=== PATIENT | male | born 1955 | race African-American/Black ===

== ENCOUNTER 2017-03-10 12:06 | Emergency (ER) | payer MEDICAID ==
[~2017-03-10] VITALS: Ht 172.7 cm; Wt 69.0 kg
[2017-03-10] MEDS ORDERED: KETOROLAC 60MG/2ML VIAL IM ONE (15:30)
[2017-03-10 15:36] VITALS: BP 130/70
== END 2017-03-10 18:14 | disposition home or self-care (01) ==
LOC: ER 12:10
DX: R07.81 Pleurodynia (principal); I10 Essential (primary) hypertension
CPT/HCPCS: 71101; 96372; 99283; J1885

== ENCOUNTER 2018-05-02 08:25 | Inpatient (IN) | payer MEDICAID ==
[~2018-05-02] VITALS: Ht 170.2 cm; Wt 72.6 kg
[2018-05-02] MEDS ORDERED: IPRATROPIUM BROMIDE (0.02%) 0.5MG/2.5ML NEB HHN STA (08:52)
[2018-05-02] MEDS ORDERED: MAGNESIUM 2 G PREMIX 50 ML IV STA (08:52)
[2018-05-02] MEDS ORDERED: METHYLPREDNISOLONE SOD SUCC 125 MG/2 ML VIAL IV STA (08:52)
[2018-05-02] MEDS ORDERED: ALBUTEROL (0.083%) 2.5MG/3ML NEB HHN STA (08:52)
[2018-05-02 09:20] LABS: BASOPHILS % 0.8 % (0.0-2.0); EOSINOPHILS % 3.8 % (0.0-5.0); HEMATOCRIT. 45.3 % (42.0-52.0); HEMOGLOBIN. 14.6 g/dL (14.0-18.0); LYMPHOCYTES % 30.7 % (20.0-50.0); MEAN CORPUSCULAR HEMOGLOBIN 29.9 pg (28.0-32.0); MEAN CORPUSCULAR VOLUME 92.9 fL (80.0-94.0); MEAN PLATELET VOLUME 10.4 fl (7.4-10.4); MONOCYTES % 6.3 % (2.0-8.0); NEUTROPHILS % 58.4 % (40.0-76.0); PLATELET 192 x1000/uL (130-400); RED BLOOD CELL COUNT 4.88 mill/uL (4.7-6.1); RED CELL DISTRIBUTION WIDTH 13.8 % (11.6-14.6)
[2018-05-02 09:25] LABS: CHLORIDE 109 mEq/L (98-107)
[2018-05-02 09:27] LABS: PARTIAL THROMBOPLASTIN TIME 24.5 sec (23.4-31.0); PROTHROMBIN TIME 10.1 sec (9.1-11.1)
[2018-05-02 09:29] LABS: ETHANOL BLOOD < 10 mg/dL
[2018-05-02] MEDS ORDERED: LEVOFLOXACIN 500MG PREMIX 100 ML IV ONE (10:00)
[2018-05-02] MEDS ORDERED: FUROSEMIDE 20MG/2ML VIAL IVP ONE (10:00)
[2018-05-02] MEDS ORDERED: IPRATROPIUM/ALBUTEROL 0.5-3(2.5)MG/3ML NEB ONE (10:04)
[2018-05-02 10:25] LABS: *AMPHETAMINES SCREEN URINE NEGATIVE (NEGATIVE); *BARBITURATES SCREEN URINE NEGATIVE (NEGATIVE); *BENZODIAZEPINES SCREEN URINE NEGATIVE (NEGATIVE)
[2018-05-02 10:26] LABS: *COCAINE SCREEN URINE PRESUMTIVE POSITIVE (NEGATIVE); CANNABINOID URINE SCREEN NEGATIVE (NEGATIVE); METHADONE URINE SCREEN NEGATIVE (NEGATIVE); OPIATES URINE SCREEN NEGATIVE (NEGATIVE); PHENCYCLIDINE URINE SCREEN PRESUMTIVE POSITIVE (NEGATIVE)
[2018-05-02] MEDS ORDERED: FUROSEMIDE 20MG/2ML VIAL ONE (10:27)
[2018-05-02] MEDS ORDERED: CLOPIDOGREL 75MG TABLET PO NR (14:00)
[2018-05-02] MEDS ORDERED: AMLODIPINE 5MG TABLET PO NR (14:00)
[2018-05-02] MEDS: NITROGLYCERIN OINT 1GM/INCH UDPKT TD SCH ×2 (14:44→21:50)
[2018-05-02 15:51] VITALS: BP 131/69
[2018-05-02] MEDS ORDERED: ACETAMINOPHEN 650MG SUPP PR PRN (19:15)
[2018-05-02] MEDS ORDERED: ONDANSETRON HCL 4MG/2ML INJ IV PRN (19:15)
[2018-05-02] MEDS ORDERED: ACETAMINOPHEN 650MG/20.3ML UDC GT PRN (19:15)
[2018-05-02] MEDS ORDERED: HYDROCODONE/ACETAMINOPHEN 5/325MG TABLET PO PRN (19:15)
[2018-05-02] MEDS ORDERED: HYDROCODONE/ACETAMINOPHEN 10/325MG TABLET PO PRN (19:15)
[2018-05-02] MEDS ORDERED: CLONIDINE 0.1MG TABLET PO PRN (19:15)
[2018-05-02] MEDS ORDERED: DIPHENHYDRAMINE 50MG/ML VIAL IV PRN (19:15)
[2018-05-02] MEDS ORDERED: MAGNESIUM/ALUMINUM HYDROXIDE/SIMETHICONE 30ML UDC PO PRN (19:15)
[2018-05-02] MEDS ORDERED: ACETAMINOPHEN 325MG TABLET PO PRN (19:15)
[2018-05-02] MEDS ORDERED: NA PHOS,M-B/NA PHOS,DI-BA ENEMA 118ML PR PRN (19:15)
[2018-05-02] MEDS ORDERED: DOCUSATE SODIUM 100MG CAPSULE PO PRN (19:15)
[2018-05-02 20:00] VITALS: BP 111/65
[2018-05-02] MEDS: ENOXAPARIN 40MG/0.4ML SYR SUBCUT SCH (21:50)
[2018-05-02 22:37] LABS: CREATINE KINASE MB FRACTION 3.8 ng/mL (0.5-3.6)
[2018-05-03 04:00] VITALS: BP 143/99
[2018-05-03] MEDS: NITROGLYCERIN OINT 1GM/INCH UDPKT TD SCH ×3 (05:53→21:18)
[2018-05-03 06:36] LABS: BASOPHILS % 0.5 % (0.0-2.0); EOSINOPHILS % 0.5 % (0.0-5.0); HEMATOCRIT. 40.8 % (42.0-52.0); HEMOGLOBIN. 13.5 g/dL (14.0-18.0); LYMPHOCYTES % 16.7 % (20.0-50.0); MEAN CORPUSCULAR HEMOGLOBIN 30.1 pg (28.0-32.0); MEAN PLATELET VOLUME 11.5 fl (7.4-10.4); MONOCYTES % 5.6 % (2.0-8.0); NEUTROPHILS % 76.7 % (40.0-76.0); PLATELET 191 x1000/uL (130-400); RED BLOOD CELL COUNT 4.48 mill/uL (4.7-6.1); RED CELL DISTRIBUTION WIDTH 13.8 % (11.6-14.6)
[2018-05-03 06:43] LABS: CHLORIDE 109 mEq/L (98-107)
[2018-05-03 06:55] LABS: CREATINE KINASE 378 IU/L (39-308); HDL CHOLESTEROL 64 mg/dL (40-59)
[2018-05-03 06:57] LABS: LDL CHOLESTEROL 95 mg/dL (5-100)
[2018-05-03 07:02] LABS: CREATINE KINASE MB FRACTION 3.7 ng/mL (0.5-3.6)
[2018-05-03 08:00] VITALS: BP 127/85
[2018-05-03] MEDS: CLOPIDOGREL 75MG TABLET PO SCH (08:20)
[2018-05-03] MEDS: ASPIRIN 81MG EC TABLET PO SCH (08:20)
[2018-05-03] MEDS: AMLODIPINE 5MG TABLET PO SCH (08:21)
[2018-05-03 08:26] VITALS: BP 127/85
[2018-05-03 12:00] VITALS: BP 133/76
[2018-05-03] MEDS: FUROSEMIDE 20MG TABLET PO SCH (12:25)
[2018-05-03 16:00] VITALS: BP 142/79
[2018-05-03] MEDS ORDERED: LEVOFLOXACIN 500MG PREMIX 100 ML IV SCH (18:00)
[2018-05-03 20:00] VITALS: BP 148/95
[2018-05-03] MEDS: ENOXAPARIN 40MG/0.4ML SYR SUBCUT SCH (20:26)
[2018-05-03] MEDS: LOSARTAN POTASSIUM 25 MG TABLET PO SCH (20:26)
[2018-05-03] MEDS: GUAIFENESIN 200MG/10ML SUGAR FREE UDC PO PRN (20:28)
[2018-05-04] VITALS (7 sets, daily range): BP systolic 116–155; BP diastolic 76–97
[2018-05-04] MEDS: NITROGLYCERIN OINT 1GM/INCH UDPKT TD SCH ×3 (06:40→21:41)
[2018-05-04] MEDS: FUROSEMIDE 20MG TABLET PO SCH ×2 (08:13→17:05)
[2018-05-04] MEDS: CLOPIDOGREL 75MG TABLET PO SCH (08:13)
[2018-05-04] MEDS: ASPIRIN 81MG EC TABLET PO SCH (08:13)
[2018-05-04] MEDS: LOSARTAN POTASSIUM 25 MG TABLET PO SCH ×2 (08:14→20:38)
[2018-05-04] MEDS: AMLODIPINE 5MG TABLET PO SCH (08:14)
[2018-05-04] MEDS ORDERED: ASPI-1158 PO (12:52)
[2018-05-04] MEDS ORDERED: AMLO5TAB88 PO (12:52)
[2018-05-04] MEDS ORDERED: LOSA25TA3 PO (12:52)
[2018-05-04] MEDS ORDERED: CLOP75TA16 PO (12:52)
[2018-05-04] MEDS ORDERED: FURO20TA4 PO (12:52)
[2018-05-04 15:30] LABS: BASOPHILS % 0.8 % (0.0-2.0); HEMOGLOBIN. 15.5 g/dL (14.0-18.0); LYMPHOCYTES % 22.5 % (20.0-50.0); MEAN CORPUSCULAR HEMOGLOBIN 30.6 pg (28.0-32.0); MEAN CORPUSCULAR VOLUME 90.8 fL (80.0-94.0); MEAN PLATELET VOLUME 10.6 fl (7.4-10.4); MONOCYTES % 8.4 % (2.0-8.0); NEUTROPHILS % 65.3 % (40.0-76.0); PLATELET 203 x1000/uL (130-400); RED BLOOD CELL COUNT 5.07 mill/uL (4.7-6.1); RED CELL DISTRIBUTION WIDTH 13.8 % (11.6-14.6)
[2018-05-04 15:34] LABS: CHLORIDE 105 mEq/L (98-107)
[2018-05-04] MEDS: LEVOFLOXACIN 750MG PREMIX 150 ML IV SCH (16:34)
[2018-05-04] MEDS: ENOXAPARIN 40MG/0.4ML SYR SUBCUT SCH (20:39)
[2018-05-04] MEDS: GUAIFENESIN 200MG/10ML SUGAR FREE UDC PO PRN (21:40)
[2018-05-05 04:05] VITALS: BP 134/96
[2018-05-05] MEDS: FUROSEMIDE 20MG TABLET PO SCH (06:29)
[2018-05-05] MEDS: NITROGLYCERIN OINT 1GM/INCH UDPKT TD SCH (06:29)
[2018-05-05 08:05] VITALS: BP 147/95
[2018-05-05] MEDS: ASPIRIN 81MG EC TABLET PO SCH (08:57)
[2018-05-05 08:58] VITALS: BP 147/95
[2018-05-05] MEDS: LOSARTAN POTASSIUM 25 MG TABLET PO SCH (08:59)
[2018-05-05] MEDS: CLOPIDOGREL 75MG TABLET PO SCH (08:59)
[2018-05-05] MEDS: AMLODIPINE 5MG TABLET PO SCH (09:00)
[2018-05-05] MEDS ORDERED: HYDROCODONE/ACETAMINOPHEN 5/325MG TABLET ONE (09:03)
[2018-05-05] MEDS: LEVOFLOXACIN 750MG PREMIX 150 ML IV SCH (11:55)
== END 2018-05-05 14:50 | disposition home or self-care (01) | DRG 139 ==
LOC: ER 08:51 → 8WST 10:11 → ENRESERV 14:25
PROVIDERS: ADMIT Family Medicine; ATTEND Family Medicine
DX: J18.9 Pneumonia, unspecified organism (principal); I50.23 Acute on chronic systolic (congestive) heart failure; J44.0 Chronic obstructive pulmonary disease with (acute) lower respiratory infection; I27.20 Pulmonary hypertension, unspecified; I13.0 Hypertensive heart and chronic kidney disease with heart failure and stage 1 through stage 4 chronic kidney disease, or unspecified chronic kidney disease; N18.9 Chronic kidney disease, unspecified; I34.0 Nonrheumatic mitral (valve) insufficiency; I25.5 Ischemic cardiomyopathy; J44.1 Chronic obstructive pulmonary disease with (acute) exacerbation; E78.5 Hyperlipidemia, unspecified; F17.210 Nicotine dependence, cigarettes, uncomplicated; I25.10 Atherosclerotic heart disease of native coronary artery without angina pectoris; I25.2 Old myocardial infarction; Z79.02 Long term (current) use of antithrombotics/antiplatelets; Z95.5 Presence of coronary angioplasty implant and graft; Z79.82 Long term (current) use of aspirin; Z95.818 Presence of other cardiac implants and grafts
CPT/HCPCS: 36415; 71045; 80061; 80305; 82550; 82553; 83605; 83880; 84484; 87070; 93005; 93306; 94640; 96365; 96375; 99291; J1650; J1940; J1956; J2930; J3475; J7040; J7611; J7620